=== PATIENT | female | born 1995 | race African-American/Black ===

== ENCOUNTER 2019-09-26 18:07 | Inpatient (IN) | payer SELFPAY ==
[2019-09-26] MEDS ORDERED: NORMAL SALINE 1000 ML 1,000 ML IV ONE ×2 (19:30→23:49)
[2019-09-26] MEDS ORDERED: HYDROMORPHONE HCL INJ/PF 2 MG/ML AMPULE IV ONE (19:30)
[2019-09-26] MEDS ORDERED: ONDANSETRON HCL INJ/PF 4 MG/2 ML SDV IV ONE ×2 (19:30→19:59)
--- NOTE | 2019-09-26 19:32 | ER Document Report ---
ED Medical Screen (RME) - General Chief Complaint: Abdominal Pain Stated Complaint: VOMITING,STOMACH PAIN Time Seen by Provider: 09/26/19 19:25 Notes: 24-year-old female with history of uterine fibroids presents to the emergency department acute distress with lower abdominal/pelvic pain x1 day. Patient is bent over in pain crying in the wheelchair in the triage room. No fevers or chills, complains of nausea and vomiting, no urinary symptoms. Exam: In acute distress bent over in wheelchair, abdominal exam deferred in triage, lungs clear to auscultation all benavidez, tachycardia with regular rhythm I have greeted and performed a rapid initial assessment of this patient. A comprehensive ED assessment and evaluation of the patient, analysis of test results and completion of medical decision making process will be conducted by an additional ED providers. - Related Data Allergies/Adverse Reactions: No Known Allergies Allergy (Unverified 09/26/19 19:26) Past Medical History - Past Medical History Cardiac Medical History: Reports: Hx Hypertension Physical Exam - Vital signs Vitals: Temp Pulse Resp BP Pulse Ox 98.0 F 107 H 18 122/66 100 09/26/19 18:34 09/26/19 18:34 09/26/19 18:34 09/26/19 18:34 09/26/19 18:34 Course - Vital Signs Vital signs: Temp Pulse Resp BP Pulse Ox 98.0 F 107 H 18 122/66 100 09/26/19 18:34 09/26/19 18:34 09/26/19 18:34 09/26/19 18:34 09/26/19 18:34
[2019-09-26] MEDS ORDERED: OXYCODONE-ACETAMINOPHEN 5-325 MG TABLET PO ONE (19:56)
[2019-09-26] MEDS ORDERED: ONDANSETRON 4 MG TAB.RAPDIS PO ONE (19:56)
[2019-09-26 20:35] LABS: HEMATOCRIT 37.8 % (36.0-47.0); HEMOGLOBIN 12.9 g/dL (12.0-15.5); MEAN CORPUSCULAR HEMOGLOBIN 30.3 pg (27.0-33.4); MEAN CORPUSCULAR VOLUME 89 fl (80-97); PLATELET COUNT 303 10^3/uL (150-450); RED BLOOD COUNT 4.24 10^6/uL (3.72-5.28); RED CELL DISTRIBUTION WIDTH 12.7 % (11.5-14.0); WHITE BLOOD COUNT 22.1 10^3/uL (4.0-10.5)
[2019-09-26 20:48] LABS: ALBUMIN 4.4 g/dL (3.5-5.0); ALKALINE PHOSPHATASE 112 U/L (38-126); ANION GAP 11 (5-19); ASPARTATE AMINO TRANSFERASE 64 U/L (14-36); BILIRUBIN,DIRECT 0.2 mg/dL (0.0-0.4); BILIRUBIN,TOTAL 0.7 mg/dL (0.2-1.3); BLOOD UREA NITROGEN 7 mg/dL (7-20); CALCIUM 9.8 mg/dL (8.4-10.2); CARBON DIOXIDE 29 mmol/L (22-30); CHLORIDE 99 mmol/L (98-107); GLUCOSE 94 mg/dL (75-110); TOTAL PROTEIN 8.1 g/dL (6.3-8.2)
[2019-09-26 20:53] LABS: ABSOLUTE LYMPHOCYTES# (MANUAL) 2.7 10^3/uL (0.5-4.7); ABSOLUTE MONOCYTES # (MANUAL) 2.7 10^3/uL (0.1-1.4); BASOPHILS % (MANUAL) 1 % (0-2); EOSINOPHILS % (MANUAL) 0 % (0-6); LYMPHOCYTES % (MANUAL) 12 % (13-45); MONOCYTES % (MANUAL) 12 % (3-13); PLATELET COMMENT ADEQUATE; RBC MORPHOLOGY COMMENT NORMO-CYTIC/CHROMIC; SEGMENTED NEUTROPHILS % (MAN) 75 % (42-78); TOTAL CELLS COUNTED 100
--- NOTE | 2019-09-26 21:31 | RADIOLOGY REPORT (SQ) ---
EXAM DESCRIPTION: US PELVIS TRANSVAGINAL COMPLETED DATE/TME: 09/26/2019 19:30 CLINICAL HISTORY: 24 years, Female, severe pelvic pain, hx fibroids COMPARISON: None. TECHNIQUE: Axial 2-D grayscale images of the pelvis were acquired. Doppler was utilized. LIMITATIONS: None. FINDINGS: Uterus measures 7.4 x 3.0 x 5.4 cm in size. Endometrial stripe thickness measures 10 mm. Left ovary measures 7.2 x 7.1 x 5.5 cm in size, containing a large hypoechoic lesion with internal latticelike echoes measuring 6.7 x 4.9 x 6.4 cm in size. This lesion does not demonstrate any internal Doppler flow. Otherwise, the left ovary demonstrates normal low resistance arterial waveforms/venous flow. The right ovary is not well-visualized. A trace amount of fluid is noted about the endocervical canal. IMPRESSION: 6.7 cm indeterminate ovarian cyst with internal latticelike echoes, most likely indicating a hemorrhagic cyst. Recommend pelvic US follow-up in 6-12 weeks; if unchanged, continue follow-up with US OR MRI with IV contrast - if follow-up studies do not confirm endometrioma or dermoid, consider surgical evaluation. Reference: Radiology 2010 May;256(3):945-32 copyright 2011 [employer]- All Rights Reserved
[2019-09-26] MEDS ORDERED: METOCLOPRAMIDE HCL INJ/PF 10 MG/2 ML SDV IV ONE (23:48)
--- NOTE | 2019-09-26 23:57 | ER Document Report ---
ED General - General Chief Complaint: Abdominal Pain Stated Complaint: VOMITING,STOMACH PAIN Time Seen by Provider: 09/26/19 19:25 TRAVEL OUTSIDE OF THE [place] IN LAST 30 DAYS: No - HPI Notes: 24-year-old female nulligravida with a history of fibroid uterus and recurrent severe abdominal and pelvic pain related to this condition comes in with a 12- hour complaint of insidious onset of severe generalized abdominal pain most severe over bilateral lower abdomen. Denies fever. Multiple episodes of vomiting. Last menses described as normal 3 weeks ago. No current medications. No known allergies. No prior surgery. Patient is otherwise in good general health. She smokes about 1/2 pack cigarettes per day. Occasional social alcohol. Admits smoking marijuana. Denies any other drug abuse. - Related Data Allergies/Adverse Reactions: No Known Allergies Allergy (Unverified 09/26/19 19:26) Past Medical History - General Information source: Patient, Parent - Social History Smoking Status: Current Every Day Smoker Family History: Reviewed & Not Pertinent Patient has suicidal ideation: No Patient has homicidal ideation: No - Past Medical History Cardiac Medical History: Reports: Hx Hypertension Review of Systems - Review of Systems Notes: Constitutional: Negative for fever. HENT: Negative for sore throat. Eyes: Negative for visual changes. Cardiovascular: Negative for chest pain. Respiratory: Negative for shortness of breath. Gastrointestinal: See history of present illness. Genitourinary: Negative for dysuria. Musculoskeletal: Negative for back pain. Skin: Negative for rash. Neurological: Negative for headaches, weakness or numbness. 10 point ROS negative except as marked above and in HPI. Physical Exam - Vital signs Vitals: Temp Pulse Resp BP Pulse Ox 98.0 F 107 H 18 122/66 100 09/26/19 18:34 09/26/19 18:34 09/26/19 18:34 09/26/19 18:34 09/26/19 18:34 - Notes Notes: GENERAL: Slender female approximately stated age who appears in severe distress secondary to pain crying and in a position initially. SKIN: Moderate facial hirsutism. Good turgor no rashes. HEAD: Normocephalic atraumatic. EYES: PERRLA. EOMI. Conjunctivae and sclerae clear. EARS: CANALS AND TMS CLEAR. NOSE: CLEAR. MOUTH: Moist mucosa. Good dentition. No stridor or edema. No drooling. NECK: Supple. No masses or thyromegaly. No adenopathy. Carotids 2+ without bruits. No JVD. BACK: Symmetrical without tenderness. CHEST: Respirations unlabored. Breath sounds clear and symmetrical. HEART: Regular rhythm. No murmur gallop or rub. ABDOMEN: Soft. Diffuse guarding with mild rebound present. Generalized tendern ess. No masses or organomegaly. Bowel sounds normally active. No bruits. GENITALIA: Deferred. EXTREMITIES: No edema. No calf tenderness. Cap refill less than 1.5 seconds. Dorsalis pedis and posterior tibial pulses 3+ and symmetrical. NEUROLOGICAL: GCS 15. Alert and oriented x3. Normal gait. Fluent speech. Cranial nerves II through XII intact. Sensorimotor and cerebellar normal. Norm al tone. PSYCHIATRIC: Very anxious. Course - Re-evaluation Re-evalutation: 09/26/19 23:56 Patient is already had a pelvic ultrasound transvaginal ordered by midlevel at triage. This is reviewed and demonstrates right-sided ovarian cyst. Her white count is markedly elevated. She is dehydrated with not been able to get a urine specimen yet. I have ordered a serum test for her. Differential diagnosis at this time would be acute appendicitis, perforated hollow viscus, ruptured ectopic , ovarian torsion or degenerating fibroid. We are giving additional fluids and analgesics and have ordered a stat CT abd omen/pelvis. 09/27/19 02:24 CT consistent with perforated appendicitis. IV Zosyn and additional fluids and pain medications have been ordered for the patient. Dr. Gonsales the surgeon on-call has been contacted and will see the patient at this time. Patient and father advised of findings. - Vital Signs Vital signs: Temp Pulse Resp BP Pulse Ox 98.0 F 107 H 18 122/66 100 09/26/19 18:34 09/26/19 18:34 09/26/19 18:34 09/26/19 18:34 09/26/19 18:34 - Laboratory Result Diagrams: 09/26/19 20:05 09/26/19 20:05 Laboratory results interpreted by me: 09/26/19 09/26/19 09/27/19 20:05 20:05 01:02 WBC 22.1 H Lymphocytes % (Manual) 12 L Abs Neuts (Manual) 16.6 H Abs Monocytes (Manual) 2.7 H AST 64 H Urine Protein 100 H Urine Ketones 80 H Urine Blood MODERATE H Discharge - Discharge Clinical Impression: Acute appendicitis with perforation and generalized peritonitis Qualifiers: Appendicitis gangrene presence: unspecified whether gangrene present Appendicitis abscess presence: unspecified whether abscess present Qualified Code(s): K35.20 - Acute appendicitis with generalized peritonitis, without abscess Condition: Serious Disposition: ADMITTED INPATIENT Admitting Provider: Surgicalist Unit Admitted: Surgical Floor
[2019-09-27] MEDS: FENTANYL CITRATE INJ/PF 100 MCG/2 ML AMPUL IV PRN ×6 (00:01→04:47)
[2019-09-27 01:29] LABS: APPEARANCE,URINE SLIGHTLY-CLOUDY; BILIRUBIN,URINE NEGATIVE (NEGATIVE); GLUCOSE, URINE NEGATIVE (NEGATIVE); KETONES,URINE 80 mg/dL (NEGATIVE); LEUKOCYTE ESTERASE,URINE NEGATIVE (NEGATIVE); NITRITE,URINE NEGATIVE (NEGATIVE); PROTEIN,URINE 100 mg/dL (NEGATIVE); URINE SPECIFIC GRAVITY 1.032; UROBILINOGEN,URINE NEGATIVE mg/dL (<2.0)
[2019-09-27 01:31] LABS: COLOR,URINE YELLOW
[2019-09-27 02:00] LABS: URINE AMPHETAMINES SCREEN NEGATIVE; URINE BARBITURATES SCREEN NEGATIVE; URINE BENZODIAZEPINES SCREEN NEGATIVE; URINE METHADONE SCREEN NEGATIVE; URINE PHENCYCLIDINE SCREEN NEGATIVE
[2019-09-27 02:02] LABS: URINE COCAINE SCREEN NEGATIVE
[2019-09-27 02:07] LABS: URINE MARIJUANA (THC) SCREEN UNCONFIRMED POSITIVE
--- NOTE | 2019-09-27 02:14 | RADIOLOGY REPORT (SQ) ---
CT abdomen and pelvis with contrast on 09/27/2019 1:26 AM CLINICAL INDICATION: Generalized abdominal pain TECHNIQUE: Multiple axial images are obtained throughout the abdomen and pelvis following the administration of IV contrast, 93 mL of Omnipaque 350 contrast was administered intravenously without complication. This exam was performed according to our departmental dose-optimization program, which includes automated exposure control, adjustment of the mA and/or kV according to patient size and/or use of iterative reconstruction technique. Total DLP is 1001.51 mGy*cm. COMPARISON: None FINDINGS: Abdomen: The lung bases are clear. The solid abdominal organs are unremarkable. There is no abdominal adenopathy. There is no free fluid or free air within the abdomen. The abdominal portion of the GI tract is unremarkable. Pelvis: There is a calcified appendicolith within the mid to distal aspect of the appendix in the mid pelvis. Surrounding this is an extensive inflammatory response with stranding and fluid. The findings are consistent with acute perforated appendicitis with likely abscess formation in the pelvic mesentery. There is associated reactive ileus with some dilated bowel in the pelvis. Recommend urgent surgical consultation. There is a large simple 7.3 x 6.2 x 6.1 cm left ovarian cyst. Would recommend ultrasound follow-up in 6-12 weeks. There is no pelvic adenopathy. Pelvic organs otherwise appear unremarkable by CT. No bony abnormality is noted. IMPRESSION: 1. Findings consistent with acute perforated appendicitis with phlegmon and abscess formation in the mid pelvis with associated reactive ileus. Recommend urgent surgical consultation. 2. 7.3 cm simple appearing left ovarian cyst. Recommend ultrasound follow-up in 6-12 weeks.
[2019-09-27] MEDS ORDERED: PIPERACILLIN/TAZOBACTAM 3.375 GM VIAL IV ONE (02:17)
[2019-09-27] MEDS ORDERED: NORMAL SALINE 1000 ML 1,000 ML IV ONE (02:25)
[2019-09-27] MEDS ORDERED: GLUCAGON,HUMAN RECOMB 1 MG INJ SUBCUT PRN (04:02)
[2019-09-27] MEDS ORDERED: MORPHINE SULFATE 10 MG/ML INJ IV PRN (04:02)
[2019-09-27] MEDS ORDERED: DEXTROSE 40% GEL 15 GM TUBE PO PRN ×2 (04:02)
[2019-09-27] MEDS ORDERED: ACETAMINOPHEN 650 MG SUPP.RECT PR PRN (04:02)
[2019-09-27] MEDS ORDERED: DEXTROSE 50%-WATER 25 GM/50 ML DISP.SYRIN IV PRN ×2 (04:02)
--- NOTE | 2019-09-27 04:19 | PDOC H&P ---
History of Present Illness Admission Date/PCP: 09/27/19 03:09 History of Present Illness: HUMERA KINSEY is a 24 year old female nulligravida with a history of fibroid uterus and recurrent severe abdominal and pelvic pain related to this condition comes in with a 12-hour complaint of insidious onset of severe generalized abdominal pain most severe over bilateral lower abdomen. Denies fever. Multiple episodes of vomiting. Last menses described as normal 3 weeks ago. No current medications. No known allergies. No prior surgery. Patient states that she has been having some lower abdominal pain for the last few weeks and has seen her primary MD who suggested that her lower abdominal pain was secondary to her fibroid uterus. She recently arrived in [place] traveling from [place] where she resided prior. Patient is otherwise in good general health. She smokes about 1/2 pack cigarettes per day. Occasional social alcohol. Admits smoking marijuana. Edd es any other drug abuse. Past Medical History Cardiac Medical History: Reports: Hypertension Social History Smoking Status: Current Every Day Smoker Family History Family History: Reviewed & Not Pertinent Parental Family History Reviewed: No Children Family History Reviewed: NA Sibling(s) Family History Reviewed.: NA Medication/Allergy Allergies/Adverse Reactions: No Known Allergies Allergy (Unverified 09/26/19 19:26) Review of Systems Constitutional: PRESENT: anorexia, fatigue, weakness, weight loss Eyes: ABSENT: visual disturbances Ears: ABSENT: hearing changes Nose, Mouth, and Throat: ABSENT: as per HPI, headache(s), mouth pain, sore throat, vertigo, other Breasts: ABSENT: as per HPI, other Cardiovascular: ABSENT: chest pain, dyspnea on exertion, edema, orthropnea, palpitations Gastrointestinal: PRESENT: abdominal pain, constipation, nausea, vomiting Genitourinary: ABSENT: dysuria, hematuria Musculoskeletal: ABSENT: joint swelling Integumentary: ABSENT: rash, wounds Neurological: ABSENT: abnormal gait, abnormal speech, confusion, dizziness, focal weakness, syncope Psychiatric: ABSENT: anxiety, depression, homidical ideation, suicidal ideation Endocrine: ABSENT: cold intolerance, heat intolerance, polydipsia, polyuria Hematologic/Lymphatic: ABSENT: easy bleeding, easy bruising Physical Exam Vital Signs: Temp Pulse Resp BP Pulse Ox 99.8 F 107 H 19 125/89 H 98 09/27/19 03:00 09/26/19 18:34 09/27/19 04:01 09/27/19 04:01 09/27/19 04:01 Intake & Output 09/25/19 09/26/19 09/27/19 06:59 06:59 06:59 Intake Total 1999 Balance 1999 Weight 81.82 kg General appearance: PRESENT: mild distress Head exam: PRESENT: normocephalic Eye exam: PRESENT: EOMI, PERRLA Ear exam: PRESENT: normal external ear exam Mouth exam: PRESENT: moist Neck exam: PRESENT: full ROM Respiratory exam: PRESENT: clear to auscultation bhanu Cardiovascular exam: PRESENT: RRR, tachycardia Pulses: PRESENT: normal radial pulses, normal femoral pulses Vascular exam: PRESENT: normal capillary refill Breast: PRESENT: Normal GI/Abdominal exam: PRESENT: other - Abdomen is mildly distended there is tenderness in the lower abdomen below her umbilicus with a palpable swelling below her umbilicus approximately 6 to 8 cm in diameter that is tender to palpation with mild peritoneal signs, guarding Rectal exam: PRESENT: deferred Extremities exam: PRESENT: full ROM Musculoskeletal exam: PRESENT: full ROM Neurological exam: PRESENT: alert, awake, oriented to person, oriented to place, oriented to time, oriented to situation Psychiatric exam: PRESENT: appropriate affect Skin exam: PRESENT: dry Results Laboratory Results: 09/26/19 20:05 09/26/19 20:05 09/26/19 09/26/19 09/26/19 20:05 20:05 20:05 WBC 22.1 H RBC 4.24 Hgb 12.9 Hct 37.8 MCV 89 MCH 30.3 MCHC 34.0 RDW 12.7 Plt Count 303 Seg Neutrophils % Not Reportable Sodium 139.1 Potassium 4.0 Chloride 99 Carbon Dioxide 29 Anion Gap 11 BUN 7 Creatinine 0.77 Est GFR ( Amer) > 60 Glucose 94 Calcium 9.8 Total Bilirubin 0.7 AST 64 H Alkaline Phosphatase 112 Total Protein 8.1 Albumin 4.4 Serum HCG, Qual NEGATIVE Urine Color Urine Appearance Urine pH Ur Specific Welch Urine Protein Urine Glucose (UA) Urine Ketones Urine Blood Urine Nitrite Ur Leukocyte Esterase Urine WBC (Auto) Urine RBC (Auto) 09/27/19 01:02 WBC RBC Hgb Hct MCV MCH MCHC RDW Plt Count Seg Neutrophils % Sodium Potassium Chloride Carbon Dioxide Anion Gap BUN Creatinine Est GFR ( Amer) Glucose Calcium Total Bilirubin AST Alkaline Phosphatase Total Protein Albumin Serum HCG, Qual Urine Color YELLOW Urine Appearance SLIGHTLY-CLOUDY Urine pH 6.0 Ur Specific Welch 1.032 Urine Protein 100 H Urine Glucose (UA) NEGATIVE Urine Ketones 80 H Urine Blood MODERATE H Urine Nitrite NEGATIVE Ur Leukocyte Esterase NEGATIVE Urine WBC (Auto) 4 Urine RBC (Auto) 65 Impressions: Abdomen/Pelvis CT 09/26/19 00:00 IMPRESSION: 1. Findings consistent with acute perforated appendicitis with phlegmon and abscess formation in the mid pelvis with associated reactive ileus. Recommend urgent surgical consultation. 2. 7.3 cm simple appearing left ovarian cyst. Recommend ultrasound follow-up in 6-12 weeks. Transvaginal US 09/26/19 19:30 IMPRESSION: 6.7 cm indeterminate ovarian cyst with internal latticelike echoes, most likely indicating a hemorrhagic cyst. Recommend pelvic US follow-up in 6-12 weeks; if unchanged, continue follow-up with US OR MRI with IV contrast - if follow-up studies do not confirm endometrioma or dermoid, consider surgical evaluation. Reference: Radiology 2010 May;256(3):174-57 copyright 2011 [employer]- All Rights Reserved Assessment & Plan - Diagnosis (1) Perforated appendicitis with phlegmon Is this a current diagnosis for this admission?: Yes - Plan Summary Plan Summary: Impression is perforated appendicitis with phlegmon. There is a large phlegmon in her lower mid abdomen that is involving the small bowel mesentery there is a moderate sized fecalith in her lower abdomen the appendix appears to be ruptured there is no free air Plan admit the patient for IV antibiotics hydration. Long discussion with the patient and her mother over the phone about the process going forward is felt that an operation now to remove her appendix would involve significant injury to her small bowel possible: She also has a large left-sided ovarian cyst. We will start her antibiotics tonight IV hydration and monitor her will probably repeat the CAT scan again in the next 2 to 3 days to evaluate for any drainable abscess. If she responds appropriately to the IV antibiotics she will need a interval appendectomy at a later date.
[2019-09-27] MEDS ORDERED: HYDROMORPHONE HCL INJ/PF 2 MG/ML AMPULE IV PRN ×2 (06:46→18:38)
[2019-09-27] MEDS: HEPARIN SOD (PORCINE) 5,000 UNIT/ML 1 ML VIAL SUBCUT SCH ×3 (06:48→22:59)
[2019-09-27] MEDS: POTASSI CL 20 MEQ/1/2NS 1L 20 MEQ/1,000 ML RTUINJ IV PRN ×3 (06:48→21:17)
[2019-09-27] MEDS: KETOROLAC TROMETHAMINE INJ/PF 30 MG/1 ML SDV IV SCH ×3 (08:14→17:25)
[2019-09-27] MEDS: PIPERACILLIN SODIUM/TAZOBACTAM 3.375 GM in NORMAL SALINE 100 ML IV SCH ×2 (10:54→17:31)
[2019-09-27] MEDS: FAMOTIDINE INJ/PF 20 MG/2 ML SDV IV SCH ×2 (10:54→22:59)
[2019-09-27] MEDS: ACETAMINOPHEN 1,000 MG/100 ML RTUPB IV SCH ×3 (13:49→22:59)
[2019-09-27] MEDS: ONDANSETRON HCL INJ/PF 4 MG/2 ML SDV IV PRN (21:17)
[2019-09-28] MEDS: KETOROLAC TROMETHAMINE INJ/PF 30 MG/1 ML SDV IV SCH ×5 (00:32→23:24)
[2019-09-28] MEDS: PIPERACILLIN SODIUM/TAZOBACTAM 3.375 GM in NORMAL SALINE 100 ML IV SCH ×3 (01:52→18:21)
[2019-09-28] MEDS ORDERED: GLUCAGON,HUMAN RECOMB 1 MG INJ SUBCUT PRN (02:28)
[2019-09-28] MEDS ORDERED: DEXTROSE 40% GEL 15 GM TUBE PO PRN ×2 (02:28)
[2019-09-28] MEDS ORDERED: DEXTROSE 50%-WATER 25 GM/50 ML DISP.SYRIN IV PRN ×2 (02:28)
[2019-09-28] MEDS: HEPARIN SOD (PORCINE) 5,000 UNIT/ML 1 ML VIAL SUBCUT SCH ×3 (05:05→21:44)
[2019-09-28] MEDS: POTASSI CL 20 MEQ/1/2NS 1L 20 MEQ/1,000 ML RTUINJ IV PRN ×2 (05:05→21:25)
[2019-09-28] MEDS: ACETAMINOPHEN 1,000 MG/100 ML RTUPB IV SCH ×4 (05:14→23:24)
[2019-09-28 07:01] LABS: HEMATOCRIT 34.7 % (36.0-47.0); HEMOGLOBIN 11.6 g/dL (12.0-15.5); MEAN CORPUSCULAR HEMOGLOBIN 30.1 pg (27.0-33.4); MEAN CORPUSCULAR HGB CONC 33.5 g/dL (32.0-36.0); MEAN CORPUSCULAR VOLUME 90 fl (80-97); PLATELET COUNT 233 10^3/uL (150-450); RED BLOOD COUNT 3.86 10^6/uL (3.72-5.28); RED CELL DISTRIBUTION WIDTH 12.9 % (11.5-14.0); WHITE BLOOD COUNT 21.1 10^3/uL (4.0-10.5)
[2019-09-28 07:16] LABS: ANION GAP 13 (5-19); BLOOD UREA NITROGEN 3 mg/dL (7-20); CALCIUM 8.8 mg/dL (8.4-10.2); CARBON DIOXIDE 19 mmol/L (22-30); CHLORIDE 103 mmol/L (98-107); POTASSIUM 4.3 mmol/L (3.6-5.0)
[2019-09-28 07:22] LABS: GLUCOSE 63 mg/dL (75-110)
[2019-09-28] MEDS: FAMOTIDINE INJ/PF 20 MG/2 ML SDV IV SCH ×2 (09:17→21:44)
--- NOTE | 2019-09-28 10:04 | PDOC PROGRESS REPORT ---
Subjective Progress Note for:: 09/28/19 Subjective:: Patient states she feels some better, no nausea or vomiting. Reason For Visit: PERFORATED APPENDICITIS Physical Exam Vital Signs: Temp Pulse Resp BP Pulse Ox 98.2 F 85 18 122/69 100 09/28/19 07:32 09/28/19 07:32 09/28/19 07:32 09/28/19 07:32 09/28/19 07:32 Intake & Output 09/27/19 09/28/19 09/29/19 06:59 06:59 06:59 Intake Total 3000 3700 Output Total 275 Balance 3000 3425 Weight 78.5 kg 78.1 kg General appearance: PRESENT: no acute distress GI/Abdominal exam: PRESENT: other - Abdomen examined. Bowel sounds are hypoactive. Some fullness in the mid to or abdomen, with guarding to moderate palpation. The remainder the abdomen is soft. No peritoneal signs Results Laboratory Results: 09/28/19 06:33 09/28/19 06:33 09/28/19 09/28/19 06:33 06:33 WBC 21.1 H RBC 3.86 Hgb 11.6 L Hct 34.7 L MCV 90 MCH 30.1 MCHC 33.5 RDW 12.9 Plt Count 233 Sodium 134.5 L Potassium 4.3 Chloride 103 Carbon Dioxide 19 L Anion Gap 13 BUN 3 L Creatinine 0.71 Est GFR ( Amer) > 60 Glucose 63 L Calcium 8.8 Impressions: Abdomen/Pelvis CT 09/26/19 00:00 IMPRESSION: 1. Findings consistent with acute perforated appendicitis with phlegmon and abscess formation in the mid pelvis with associated reactive ileus. Recommend urgent surgical consultation. 2. 7.3 cm simple appearing left ovarian cyst. Recommend ultrasound follow-up in 6-12 weeks. Transvaginal US 09/26/19 19:30 IMPRESSION: 6.7 cm indeterminate ovarian cyst with internal latticelike echoes, most likely indicating a hemorrhagic cyst. Recommend pelvic US follow-up in 6-12 weeks; if unchanged, continue follow-up with US OR MRI with IV contrast - if follow-up studies do not confirm endometrioma or dermoid, consider surgical evaluation. Reference: Radiology 2010 May;256(3):276-18 copyright 2011 [employer]- All Rights Reserved Assessment & Plan - Diagnosis (1) Perforated appendicitis with phlegmon Is this a current diagnosis for this admission?: Yes Plan: Impression: Clinically stable, however persisting leukocytosis and metabolic acidosis. Recommendations: 1. Discussed management with the surgical team. We will continue nonoperative management for another 24 hours then reassess 2. We will start clear liquid sips; get patient out of bed into chair, and shower 3. Will increase IV fluids. - Time Time Spent with patient: 15-24 minutes Medications reviewed and adjusted accordingly: Yes Anticipated discharge: Home
[2019-09-28] MEDS ORDERED: NORMAL SALINE 1000 ML 1,000 ML IV PRN (10:15)
[2019-09-28] MEDS: DOCUSATE SODIUM 100 MG CAPSULE PO SCH ×2 (12:22→18:26)
[2019-09-28] MEDS ORDERED: ACETAMINOPHEN 1,000 MG/100 ML RTUPB IV ONE (23:09)
[2019-09-29] MEDS: PIPERACILLIN SODIUM/TAZOBACTAM 3.375 GM in NORMAL SALINE 100 ML IV SCH ×3 (02:36→17:09)
[2019-09-29] MEDS: KETOROLAC TROMETHAMINE INJ/PF 30 MG/1 ML SDV IV SCH ×3 (06:22→17:04)
[2019-09-29] MEDS: HEPARIN SOD (PORCINE) 5,000 UNIT/ML 1 ML VIAL SUBCUT SCH ×3 (06:23→22:07)
[2019-09-29 06:47] LABS: HEMATOCRIT 32.5 % (36.0-47.0); HEMOGLOBIN 10.9 g/dL (12.0-15.5); MEAN CORPUSCULAR HEMOGLOBIN 29.8 pg (27.0-33.4); MEAN CORPUSCULAR HGB CONC 33.5 g/dL (32.0-36.0); MEAN CORPUSCULAR VOLUME 89 fl (80-97); PLATELET COUNT 254 10^3/uL (150-450); RED BLOOD COUNT 3.64 10^6/uL (3.72-5.28); RED CELL DISTRIBUTION WIDTH 12.7 % (11.5-14.0); WHITE BLOOD COUNT 16.2 10^3/uL (4.0-10.5)
[2019-09-29 07:17] LABS: ANION GAP 9 (5-19); BLOOD UREA NITROGEN 3 mg/dL (7-20); CALCIUM 8.6 mg/dL (8.4-10.2); CARBON DIOXIDE 22 mmol/L (22-30); CHLORIDE 106 mmol/L (98-107); GLUCOSE 85 mg/dL (75-110); POTASSIUM 4.3 mmol/L (3.6-5.0)
[2019-09-29] MEDS: ACETAMINOPHEN 1,000 MG/100 ML RTUPB IV SCH ×4 (09:34→18:01)
[2019-09-29] MEDS: FAMOTIDINE INJ/PF 20 MG/2 ML SDV IV SCH ×2 (09:34→22:06)
[2019-09-29] MEDS: POTASSI CL 20 MEQ/1/2NS 1L 20 MEQ/1,000 ML RTUINJ IV PRN ×3 (09:35→22:07)
[2019-09-29] MEDS: DOCUSATE SODIUM 100 MG CAPSULE PO SCH ×3 (10:00→18:02)
--- NOTE | 2019-09-29 11:21 | PDOC PROGRESS REPORT ---
Subjective Progress Note for:: 09/29/19 Subjective:: less pains. Had diarrhea last night with small amount of flatus. Tolerating some clears Claims her menses started again yesterday and usually she gets some pelvic pains with her lens menstruation. Reason For Visit: PERFORATED APPENDICITIS Physical Exam Vital Signs: Temp Pulse Resp BP Pulse Ox 98.5 F 81 16 123/78 99 09/29/19 07:12 09/29/19 07:12 09/29/19 07:12 09/29/19 07:12 09/29/19 07:12 Intake & Output 09/28/19 09/29/19 09/30/19 06:59 06:59 06:59 Intake Total 3700 3580 100 Output Total 275 300 Balance 3425 3280 100 Weight 78.1 kg 79.4 kg General appearance: PRESENT: mild distress Exam: Abdomen is less distended than remains soft but still with some tenderness in mohsen th lower quadrant areas. Results Laboratory Results: 09/29/19 06:33 09/29/19 06:33 09/29/19 09/29/19 06:33 06:33 WBC 16.2 H RBC 3.64 L Hgb 10.9 L Hct 32.5 L MCV 89 MCH 29.8 MCHC 33.5 RDW 12.7 Plt Count 254 Sodium 136.6 L Potassium 4.3 Chloride 106 Carbon Dioxide 22 Anion Gap 9 BUN 3 L Creatinine 0.63 Est GFR ( Amer) > 60 Glucose 85 Calcium 8.6 Impressions: Abdomen/Pelvis CT 09/26/19 00:00 IMPRESSION: 1. Findings consistent with acute perforated appendicitis with phlegmon and abscess formation in the mid pelvis with associated reactive ileus. Recommend urgent surgical consultation. 2. 7.3 cm simple appearing left ovarian cyst. Recommend ultrasound follow-up in 6-12 weeks. Transvaginal US 09/26/19 19:30 IMPRESSION: 6.7 cm indeterminate ovarian cyst with internal latticelike echoes, most likely indicating a hemorrhagic cyst. Recommend pelvic US follow-up in 6-12 weeks; if unchanged, continue follow-up with US OR MRI with IV contrast - if follow-up studies do not confirm endometrioma or dermoid, consider surgical evaluation. Reference: Radiology 2010 May;256(3):946-28 copyright 2011 [employer]- All Rights Reserved Assessment & Plan - Diagnosis (1) Perforated appendicitis with phlegmon Is this a current diagnosis for this admission?: Yes - Time Time Spent with patient: 15-24 minutes - Inpatient Certification Medical Necessity: Need for Pain Control, Need for IV Antibiotics, Risk of C omplication if Not Cared For in Hospital - Plan Summary Plan Summary: 24-year-old female admitted 09/27/2019 for perforated appendicitis with phlegmon noted on CT scan. Her white count was elevated to 22,000 on admission and today is down to about 16,000. Patient continued to have some diarrheic stools with small amount of flatus. Has occasional nausea with vomiting but her pains appears to be getting a little better. Unfortunately he had her menses come back yesterday and she is on her pains with her mental menstruation. Plans: Continue on clear liquids and IV antibiotics A possible repeat CT scan of the abdomen and 24 to 48 hours and see if there is any localized abscess that may be drained by IR
[2019-09-30] MEDS: KETOROLAC TROMETHAMINE INJ/PF 30 MG/1 ML SDV IV SCH ×4 (00:29→17:46)
[2019-09-30] MEDS: ACETAMINOPHEN 1,000 MG/100 ML RTUPB IV SCH ×2 (00:29→07:01)
[2019-09-30] MEDS: PIPERACILLIN SODIUM/TAZOBACTAM 3.375 GM in NORMAL SALINE 100 ML IV SCH ×3 (02:38→17:46)
[2019-09-30 05:15] LABS: HEMATOCRIT 32.8 % (36.0-47.0); HEMOGLOBIN 10.9 g/dL (12.0-15.5); MEAN CORPUSCULAR HEMOGLOBIN 29.6 pg (27.0-33.4); MEAN CORPUSCULAR HGB CONC 33.2 g/dL (32.0-36.0); MEAN CORPUSCULAR VOLUME 89 fl (80-97); PLATELET COUNT 290 10^3/uL (150-450); RED BLOOD COUNT 3.67 10^6/uL (3.72-5.28); RED CELL DISTRIBUTION WIDTH 12.7 % (11.5-14.0); WHITE BLOOD COUNT 17.3 10^3/uL (4.0-10.5)
[2019-09-30 05:44] LABS: ANION GAP 10 (5-19); BLOOD UREA NITROGEN 2 mg/dL (7-20); CALCIUM 8.6 mg/dL (8.4-10.2); CARBON DIOXIDE 23 mmol/L (22-30); CHLORIDE 104 mmol/L (98-107); GLUCOSE 72 mg/dL (75-110); POTASSIUM 4.5 mmol/L (3.6-5.0)
[2019-09-30] MEDS ORDERED: ACETAMINOPHEN 1,000 MG/100 ML RTUPB IV ONE (06:17)
[2019-09-30] MEDS: HEPARIN SOD (PORCINE) 5,000 UNIT/ML 1 ML VIAL SUBCUT SCH ×3 (07:03→21:42)
[2019-09-30] MEDS: POTASSI CL 20 MEQ/1/2NS 1L 20 MEQ/1,000 ML RTUINJ IV PRN ×3 (07:11→21:05)
[2019-09-30] MEDS: FAMOTIDINE INJ/PF 20 MG/2 ML SDV IV SCH ×2 (09:16→21:43)
[2019-09-30] MEDS: DOCUSATE SODIUM 100 MG CAPSULE PO SCH ×2 (10:38→17:46)
[2019-09-30] MEDS: ONDANSETRON HCL INJ/PF 4 MG/2 ML SDV IV PRN (12:03)
--- NOTE | 2019-09-30 12:15 | RADIOLOGY REPORT (SQ) ---
EXAM DESCRIPTION: CT ABD/PELVIS WITH IV ORAL COMPLETED DATE/TIME: 09/30/2019 11:35 am REASON FOR STUDY: Rule out abscess Perforated appendicitis COMPARISON: CT abdomen pelvis, 09/27/2019, pelvic ultrasound, 09/26/2019 TECHNIQUE: CT scan of the abdomen and pelvis performed using helical scanning technique with dynamic intravenous contrast injection. Additional oral contrast. Images reviewed with lung, soft tissue, a nd bone windows. Reconstructed coronal and sagittal MPR images reviewed. Delayed images for evaluatio n of the urinary system also acquired. All images stored on PACS. All CT scanners at this facility use dose modulation, iterative reconstruction, and/or weight based d osing when appropriate to reduce radiation dose to as low as reasonably achievable (ALARA). [facility]: Dose Right [facility]: CareDose [facility]: Dose Right [facility]: Teradose 4D [facility]: [employer] CONTRAST TYPE AND DOSE: contrast/concentration: Isovue 350.00 mg/ml; Total Contrast Delivered: 90.0 ml; Total Saline Delivered: 70.0 ml RENAL FUNCTION: None required. The patient is less than 50 years old. RADIATION DOSE: CT Rad equipment meets quality standard of care and radiation dose reduction techniq ues were employed. CTDIvol: 8.1 - 8.2 mGy. DLP: 882 mGy-cm.. LIMITATIONS: None. FINDINGS: LOWER CHEST: No significant findings. No nodules or infiltrates. LIVER: Normal size. No masses. No dilated ducts. SPLEEN: Normal size. No focal lesions. PANCREAS: No masses. No significant calcifications. No adjacent inflammation or peripancreatic fluid collections. Pancreatic duct not dilated. GALLBLADDER: No identified stones by CT criteria. No inflammatory changes to suggest cholecystitis. ADRENAL GLANDS: No significant masses or asymmetry. RIGHT KIDNEY AND URETER: No solid masses. No significant calcifications. No hydronephrosis or hyd roureter. LEFT KIDNEY AND URETER: No solid masses. No significant calcifications. No hydronephrosis or hydr oureter. AORTA AND VESSELS: No aneurysm. No dissection. Renal arteries, SMA, celiac without stenosis. RETROPERITONEUM: No retroperitoneal adenopathy, hemorrhage or masses. BOWEL AND PERITONEAL CAVITY: No bowel obstruction. APPENDIX: There is a more discretely appreciated rim enhancing fluid collection in the low central ab domen adjacent to a calcification, likely an at appendicolith, findings generally in keeping with per forated appendicitis complicated by abscess. Fluid collection measures approximately 4.3 x 2.7 x 2.0 cm (series 601, image 31). PELVIS: There is a large fluid attenuation lesion in the vicinity of the left ovary measuring at leas t 8.1 cm. No free fluid. Normal bladder. ABDOMINAL WALL: No masses. No hernias. BONES: No significant or acute findings. OTHER: No other significant finding. IMPRESSION: 1. There is a more discretely appreciated rim enhancing fluid collection in the low cent ral abdomen adjacent to a calcification, likely an at appendicolith, findings generally in keeping wi th perforated appendicitis complicated by abscess. Fluid collection measures approximately 4.3 x 2.7 x 2.0 cm (series 601, image 31). 2. There is a large fluid attenuation lesion in the vicinity of the left ovary measuring at least 8.1 cm, in keeping with ovarian cyst identified on prior ultrasound. TECHNICAL DOCUMENTATION: JOB ID: [id number] Quality ID # [id number]: Final reports with documentation of one or more dose reduction techniques (e.g., Au tomated exposure control, adjustment of the mA and/or kV according to patient size, use of iterative reconstruction technique) 2010 [employer]- All Rights Reserved Reading location - IP/workstation name: [email or web address]
--- NOTE | 2019-09-30 14:05 | PDOC PROGRESS REPORT ---
Subjective Progress Note for:: 09/30/19 Subjective:: C/o lower abdominal pains this patient attributes more to her menses which started the other day. Still having liquid stools. Some flatus. She had a vomiting episode last night Reason For Visit: PERFORATED APPENDICITIS Physical Exam Vital Signs: Temp Pulse Resp BP Pulse Ox 98.4 F 84 16 135/78 H 100 09/30/19 12:00 09/30/19 12:00 09/30/19 12:00 09/30/19 12:00 09/30/19 12:00 Intake & Output 09/29/19 09/30/19 10/01/19 06:59 06:59 06:59 Intake Total 3600 3587 200 Output Total 300 Balance 3300 3587 200 Weight 79.4 kg 79.3 kg Exam: Abdomen remains soft and less distended. She still mildly tender around the periumbilical and suprapubic areas. Results Laboratory Results: 09/30/19 04:57 09/30/19 04:57 09/30/19 09/30/19 04:57 04:57 WBC 17.3 H RBC 3.67 L Hgb 10.9 L Hct 32.8 L MCV 89 MCH 29.6 MCHC 33.2 RDW 12.7 Plt Count 290 Sodium 137.2 Potassium 4.5 Chloride 104 Carbon Dioxide 23 Anion Gap 10 BUN 2 L Creatinine 0.66 Est GFR ( Amer) > 60 Glucose 72 L Calcium 8.6 Impressions: Transvaginal US 09/26/19 19:30 IMPRESSION: 6.7 cm indeterminate ovarian cyst with internal latticelike echoes, most likely indicating a hemorrhagic cyst. Recommend pelvic US follow-up in 6-12 weeks; if unchanged, continue follow-up with US OR MRI with IV contrast - if follow-up studies do not confirm endometrioma or dermoid, consider surgical evaluation. Reference: Radiology 2010 May;256(3):943-34 copyright 2011 [employer]- All Rights Reserved Abdomen/Pelvis CT 09/30/19 00:00 IMPRESSION: 1. There is a more discretely appreciated rim enhancing fluid collection in the low central abdomen adjacent to a calcification, likely an at appendicolith, findings generally in keeping with perforated appendicitis complicated by abscess. Fluid collection measures approximately 4.3 x 2.7 x 2.0 cm (series 601, image 31). 2. There is a large fluid attenuation lesion in the vicinity of the left ovary measuring at least 8.1 cm, in keeping with ovarian cyst identified on prior ultrasound. Assessment & Plan - Diagnosis (1) Perforated appendicitis with phlegmon Is this a current diagnosis for this admission?: Yes - Time Time Spent with patient: 15-24 minutes - Inpatient Certification Medical Necessity: Need For IV Fluids, Need for IV Antibiotics, Need for Surgery - Plan Summary Plan Summary: At follow-up CT scan of the abdomen after first 1 done about 4 days ago. This showed more localized small periappendiceal abscess. I reviewed the films and discuss it with the radiologist. There will have an IR tomorrow for possible drainage/aspiration of abdominal abscess. Continue with IV antibiotic therapy and IV fluids. Continue with clear liquids for now. We will repeat the CBC in a.m. since it remains still elevated.
[2019-10-01] MEDS: PIPERACILLIN SODIUM/TAZOBACTAM 3.375 GM in NORMAL SALINE 100 ML IV SCH ×3 (01:00→18:05)
[2019-10-01] MEDS: KETOROLAC TROMETHAMINE INJ/PF 30 MG/1 ML SDV IV SCH ×5 (03:20→23:57)
[2019-10-01] MEDS: HEPARIN SOD (PORCINE) 5,000 UNIT/ML 1 ML VIAL SUBCUT SCH ×2 (05:47→16:50)
[2019-10-01] MEDS: POTASSI CL 20 MEQ/1/2NS 1L 20 MEQ/1,000 ML RTUINJ IV PRN (06:06)
[2019-10-01 06:59] LABS: HEMATOCRIT 31.5 % (36.0-47.0); HEMOGLOBIN 10.7 g/dL (12.0-15.5); MEAN CORPUSCULAR HEMOGLOBIN 30.2 pg (27.0-33.4); MEAN CORPUSCULAR HGB CONC 33.9 g/dL (32.0-36.0); MEAN CORPUSCULAR VOLUME 89 fl (80-97); PLATELET COUNT 303 10^3/uL (150-450); RED BLOOD COUNT 3.54 10^6/uL (3.72-5.28); RED CELL DISTRIBUTION WIDTH 12.9 % (11.5-14.0); WHITE BLOOD COUNT 15.8 10^3/uL (4.0-10.5)
[2019-10-01 07:18] LABS: ANION GAP 14 (5-19); CALCIUM 8.9 mg/dL (8.4-10.2); CARBON DIOXIDE 19 mmol/L (22-30); CHLORIDE 103 mmol/L (98-107); POTASSIUM 4.5 mmol/L (3.6-5.0)
[2019-10-01 07:55] LABS: BLOOD UREA NITROGEN < 2 mg/dL (7-20); GLUCOSE 64 mg/dL (75-110)
[2019-10-01] MEDS: DOCUSATE SODIUM 100 MG CAPSULE PO SCH ×2 (09:04→18:21)
[2019-10-01] MEDS: POTASSI CL 20 MEQ/D5-1/2NS 1L 1000 ML IV PRN ×3 (09:07→21:26)
[2019-10-01] MEDS: FAMOTIDINE INJ/PF 20 MG/2 ML SDV IV SCH ×2 (10:54→21:23)
--- NOTE | 2019-10-01 18:13 | PDOC PROGRESS REPORT ---
Subjective Progress Note for:: 10/01/19 Subjective:: 24-year-old female with an intra-abdominal abscess, suspicious for appendicitis. The patient was supposed to have a percutaneous drainage of her intra-abdominal abscess today by interventional radiology. This has not been done as of yet. The patient reports being hungry, but does not report any significant abdominal pain, fevers, chills, nausea, vomiting, constipation, diarrhea, chest pain, shortness of breath, dizziness, blurry vision, fatigue, malaise, or other complaint. Reason For Visit: PERFORATED APPENDICITIS Physical Exam Vital Signs: Temp Pulse Resp BP Pulse Ox 98.6 F 72 18 122/76 98 10/01/19 15:21 10/01/19 15:21 10/01/19 15:21 10/01/19 15:21 10/01/19 15:21 Intake & Output 09/30/19 10/01/19 10/02/19 06:59 06:59 06:59 Intake Total 3587 3400 2040 Balance 3587 3400 2040 Weight 79.3 kg 78.1 kg General appearance: PRESENT: no acute distress, cooperative Head exam: PRESENT: atraumatic, normocephalic Eye exam: PRESENT: EOMI, PERRLA. ABSENT: scleral icterus Mouth exam: PRESENT: moist, neck supple Neck exam: ABSENT: meningismus, tenderness, thyromegaly, tracheal deviation Respiratory exam: PRESENT: clear to auscultation bhanu. ABSENT: chest wall tenderness Cardiovascular exam: PRESENT: RRR GI/Abdominal exam: PRESENT: soft, tenderness - Mild lower abdominal tenderness. ABSENT: guarding, rebound, rigid Rectal exam: PRESENT: deferred Extremities exam: ABSENT: clubbing Musculoskeletal exam: ABSENT: deformity Neurological exam: PRESENT: alert, awake, oriented to person, oriented to place, oriented to time, oriented to situation, CN II-XII grossly intact. ABSENT: motor sensory deficit Psychiatric exam: ABSENT: agitated, anxious, depressed Focused psych exam: ABSENT: delusional Skin exam: ABSENT: cyanosis, erythema, jaundice Results Laboratory Results: 10/01/19 06:17 10/01/19 06:17 10/01/19 10/01/19 06:17 06:17 WBC 15.8 H RBC 3.54 L Hgb 10.7 L Hct 31.5 L MCV 89 MCH 30.2 MCHC 33.9 RDW 12.9 Plt Count 303 Sodium 135.6 L Potassium 4.5 Chloride 103 Carbon Dioxide 19 L Anion Gap 14 BUN < 2 L Creatinine 0.63 Est GFR ( Amer) > 60 Glucose 64 L Calcium 8.9 Impressions: Transvaginal US 09/26/19 19:30 IMPRESSION: 6.7 cm indeterminate ovarian cyst with internal latticelike echoes, most likely indicating a hemorrhagic cyst. Recommend pelvic US follow-up in 6-12 weeks; if unchanged, continue follow-up with US OR MRI with IV contrast - if follow-up studies do not confirm endometrioma or dermoid, consider surgical evaluation. Reference: Radiology 2010 May;256(3):269-30 copyright 2011 [employer]- All Rights Reserved Abdomen/Pelvis CT 09/30/19 00:00 IMPRESSION: 1. There is a more discretely appreciated rim enhancing fluid collection in the low central abdomen adjacent to a calcification, likely an at appendicolith, findings generally in keeping with perforated appendicitis complicated by abscess. Fluid collection measures approximately 4.3 x 2.7 x 2.0 cm (series 601, image 31). 2. There is a large fluid attenuation lesion in the vicinity of the left ovary measuring at least 8.1 cm, in keeping with ovarian cyst identified on prior ultrasound. Assessment & Plan - Diagnosis (1) Intra-abdominal abscess Is this a current diagnosis for this admission?: Yes - Time Time Spent with patient: Less than 15 minutes - Plan Summary Plan Summary: This is a 24-year-old female with an intra-abdominal abscess. Her percutaneous drain did not happen today. I will touch base with radiology to identify the problem. Patient will require drainage at some point in the near future. Further planning to be determined after discussion with radiology.
[2019-10-02] MEDS: PIPERACILLIN SODIUM/TAZOBACTAM 3.375 GM in NORMAL SALINE 100 ML IV SCH ×3 (01:31→17:45)
[2019-10-02] MEDS: POTASSI CL 20 MEQ/D5-1/2NS 1L 1000 ML IV PRN ×3 (04:03→20:57)
[2019-10-02 06:38] LABS: HEMATOCRIT 33.1 % (36.0-47.0); HEMOGLOBIN 11.1 g/dL (12.0-15.5); MEAN CORPUSCULAR HEMOGLOBIN 29.8 pg (27.0-33.4); MEAN CORPUSCULAR HGB CONC 33.5 g/dL (32.0-36.0); MEAN CORPUSCULAR VOLUME 89 fl (80-97); PLATELET COUNT 354 10^3/uL (150-450); RED BLOOD COUNT 3.72 10^6/uL (3.72-5.28); RED CELL DISTRIBUTION WIDTH 12.9 % (11.5-14.0); WHITE BLOOD COUNT 13.9 10^3/uL (4.0-10.5)
[2019-10-02 07:04] LABS: ANION GAP 8 (5-19); CALCIUM 9.2 mg/dL (8.4-10.2); CARBON DIOXIDE 27 mmol/L (22-30); CHLORIDE 103 mmol/L (98-107); GLUCOSE 114 mg/dL (75-110); POTASSIUM 4.4 mmol/L (3.6-5.0)
[2019-10-02 07:32] LABS: BLOOD UREA NITROGEN < 2 mg/dL (7-20)
[2019-10-02] MEDS: DOCUSATE SODIUM 100 MG CAPSULE PO SCH ×3 (09:39→17:13)
[2019-10-02] MEDS: FAMOTIDINE INJ/PF 20 MG/2 ML SDV IV SCH ×2 (09:39→21:02)
--- NOTE | 2019-10-02 10:16 | PDOC PROGRESS REPORT ---
Subjective Progress Note for:: 10/02/19 Subjective:: Feels better. Hungry. Still with liquid stools with flatus. Just got a call from radiology that a new radiologist will be in tomorrow to possibly do percutaneous drainage of the intra-abdominal abscess. Patient also rec will have a new CT scan with p.o. and IV contrast in a.m. Reason For Visit: PERFORATED APPENDICITIS Physical Exam Vital Signs: Temp Pulse Resp BP Pulse Ox 98.5 F 83 16 132/75 H 100 10/02/19 08:00 10/02/19 08:00 10/02/19 08:00 10/02/19 08:00 10/02/19 08:00 Intake & Output 10/01/19 10/02/19 10/03/19 06:59 06:59 06:59 Intake Total 3400 4240 200 Balance 3400 4240 200 Weight 78.1 kg 81.7 kg Exam: Abdomen is soft with minimal tenderness in the periumbilical and suprapubic areas Results Laboratory Results: 10/02/19 05:52 10/02/19 05:52 10/02/19 10/02/19 05:52 05:52 WBC 13.9 H RBC 3.72 Hgb 11.1 L Hct 33.1 L MCV 89 MCH 29.8 MCHC 33.5 RDW 12.9 Plt Count 354 Sodium 137.7 Potassium 4.4 Chloride 103 Carbon Dioxide 27 Anion Gap 8 BUN < 2 L Creatinine 0.68 Est GFR ( Amer) > 60 Glucose 114 H Calcium 9.2 Impressions: Transvaginal US 09/26/19 19:30 IMPRESSION: 6.7 cm indeterminate ovarian cyst with internal latticelike echoes, most likely indicating a hemorrhagic cyst. Recommend pelvic US follow-up in 6-12 weeks; if unchanged, continue follow-up with US OR MRI with IV contrast - if follow-up studies do not confirm endometrioma or dermoid, consider surgical evaluation. Reference: Radiology 2010 Sep;256(3):94-80 copyright 2011 [employer]- All Rights Reserved Abdomen/Pelvis CT 09/30/19 00:00 IMPRESSION: 1. There is a more discretely appreciated rim enhancing fluid collection in the low central abdomen adjacent to a calcification, likely an at appendicolith, findings generally in keeping with perforated appendicitis complicated by abscess. Fluid collection measures approximately 4.3 x 2.7 x 2.0 cm (series 601, image 31). 2. There is a large fluid attenuation lesion in the vicinity of the left ovary measuring at least 8.1 cm, in keeping with ovarian cyst identified on prior ultrasound. Assessment & Plan - Diagnosis (1) Perforated appendicitis with phlegmon Is this a current diagnosis for this admission?: Yes - Time Time Spent with patient: 15-24 minutes - Inpatient Certification Medical Necessity: Need for IV Antibiotics, Need for Surgery - Plan Summary Plan Summary: 24-year-old female with perforated appendicitis with now localized abscess. Her white count is trending down and clinically looks better. Plans: Continue IV antibiotics. For percutaneous drainage of abscess tomorrow by IR. Start full liquids today and n.p.o. from midnight
[2019-10-03] MEDS: PIPERACILLIN SODIUM/TAZOBACTAM 3.375 GM in NORMAL SALINE 100 ML IV SCH ×3 (02:45→17:43)
[2019-10-03 05:28] LABS: ABSOLUTE BASOPHILS # (AUTO) 0.1 10^3/uL (0.0-0.2); ABSOLUTE EOSINOPHILS # (AUTO) 0.3 10^3/uL (0.0-0.6); ABSOLUTE LYMPHOCYTES (AUTO) 2.3 10^3/uL (0.5-4.7); ABSOLUTE MONOCYTES (AUTO) 1.3 10^3/uL (0.1-1.4); ABSOLUTE NEUT (AUTO) 8.3 10^3/uL (1.7-8.2); BASOPHILS % (AUTO) 0.5 % (0-2); EOSINOPHILS % (AUTO) 2.6 % (0-6); HEMATOCRIT 34.4 % (36.0-47.0); HEMOGLOBIN 11.6 g/dL (12.0-15.5); INTERNATIONAL RATION (INR) 1.08; LYMPHOCYTES % (AUTO) 18.7 % (13-45); MEAN CORPUSCULAR HEMOGLOBIN 29.7 pg (27.0-33.4); MEAN CORPUSCULAR HGB CONC 33.6 g/dL (32.0-36.0); MEAN CORPUSCULAR VOLUME 88 fl (80-97); MONOCYTES % (AUTO) 10.5 % (3-13); PLATELET COUNT 356 10^3/uL (150-450); RED BLOOD COUNT 3.89 10^6/uL (3.72-5.28); RED CELL DISTRIBUTION WIDTH 13.2 % (11.5-14.0); SEGMENTED NEUTROPHILS % (AUTO) 67.7 % (42-78); TOTAL CELLS COUNTED % (AUTO) 100 %; WHITE BLOOD COUNT 12.3 10^3/uL (4.0-10.5)
[2019-10-03 05:29] LABS: PARTIAL THROMBOPLASTIN TIME 32.7 SEC (23.5-35.8)
[2019-10-03 05:52] LABS: ANION GAP 12 (5-19); CALCIUM 9.2 mg/dL (8.4-10.2); CARBON DIOXIDE 24 mmol/L (22-30); CHLORIDE 105 mmol/L (98-107); GLUCOSE 104 mg/dL (75-110)
[2019-10-03 05:56] LABS: BLOOD UREA NITROGEN < 2 mg/dL (7-20)
[2019-10-03] MEDS: POTASSI CL 20 MEQ/D5-1/2NS 1L 1000 ML IV PRN ×2 (07:34→17:52)
[2019-10-03] MEDS: FAMOTIDINE INJ/PF 20 MG/2 ML SDV IV SCH ×2 (09:44→21:53)
[2019-10-03] MEDS: DOCUSATE SODIUM 100 MG CAPSULE PO SCH ×2 (09:45→18:53)
--- NOTE | 2019-10-03 10:54 | PDOC PROGRESS REPORT ---
Subjective Progress Note for:: 10/03/19 Subjective:: much less pains. Pains more due to her menses Reason For Visit: PERFORATED APPENDICITIS Physical Exam Vital Signs: Temp Pulse Resp BP Pulse Ox 97.7 F 80 18 112/77 99 10/03/19 09:00 10/03/19 09:00 10/03/19 09:00 10/03/19 09:00 10/03/19 09:00 Intake & Output 10/02/19 10/03/19 10/04/19 06:59 06:59 06:59 Intake Total 4240 3700 Output Total 900 Balance 4240 2800 Weight 81.7 kg 84.7 kg 84.7 kg Exam: Abdomen is soft with minimal tenderness. She is remained afebrile. No nausea or vomiting Results Laboratory Results: 10/03/19 05:07 10/03/19 05:07 10/03/19 10/03/19 05:07 05:07 WBC 12.3 H RBC 3.89 Hgb 11.6 L Hct 34.4 L MCV 88 MCH 29.7 MCHC 33.6 RDW 13.2 Plt Count 356 Seg Neutrophils % 67.7 Sodium 140.9 Potassium 4.0 Chloride 105 Carbon Dioxide 24 Anion Gap 12 BUN < 2 L Creatinine 0.71 Est GFR ( Amer) > 60 Glucose 104 Calcium 9.2 Impressions: Transvaginal US 09/26/19 19:30 IMPRESSION: 6.7 cm indeterminate ovarian cyst with internal latticelike echoes, most likely indicating a hemorrhagic cyst. Recommend pelvic US follow-up in 6-12 weeks; if unchanged, continue follow-up with US OR MRI with IV contrast - if follow-up studies do not confirm endometrioma or dermoid, consider surgical evaluation. Reference: Radiology 2009;256(3):944-54 copyright 2011 [employer]- All Rights Reserved Assessment & Plan - Diagnosis (1) Perforated appendicitis with phlegmon Is this a current diagnosis for this admission?: Yes - Time Time Spent with patient: 15-24 minutes - Inpatient Certification Medical Necessity: Need for IV Antibiotics, Need for Surgery - Plan Summary Plan Summary: Day 6 of IV antibiotics for perforated appendicitis with abscess soon. Plans: Discussed with Dr. Arredondo who is the IR and they might be able to place a drain but may be able to just aspirate the abscess. Continue IV antibiotics. Could possibly start on diet after aspiration of abscess
[2019-10-03] MEDS ORDERED: MIDAZOLAM 2 MG/2 ML INJ ONE (11:18)
[2019-10-03] MEDS ORDERED: FENTANYL CITRATE INJ/PF 100 MCG/2 ML AMPUL ONE (11:18)
--- NOTE | 2019-10-03 12:02 | PDOC PROGRESS REPORT ---
Subjective Progress Note for:: 10/03/19 Subjective:: Much less pains. Pains more from her menses. Reason For Visit: PERFORATED APPENDICITIS Physical Exam Vital Signs: Temp Pulse Resp BP Pulse Ox 97.7 F 80 18 112/77 99 10/03/19 09:00 10/03/19 09:00 10/03/19 09:00 10/03/19 09:00 10/03/19 09:00 Intake & Output 10/02/19 10/03/19 10/04/19 06:59 06:59 06:59 Intake Total 4240 3700 Output Total 900 Balance 4240 2800 Weight 81.7 kg 84.7 kg 84.7 kg Exam: Abdomen is not distended. Minimal tenderness along the suprapubic and periumbilical areas. Results Laboratory Results: 10/03/19 05:07 10/03/19 05:07 10/03/19 10/03/19 05:07 05:07 WBC 12.3 H RBC 3.89 Hgb 11.6 L Hct 34.4 L MCV 88 MCH 29.7 MCHC 33.6 RDW 13.2 Plt Count 356 Seg Neutrophils % 67.7 Sodium 140.9 Potassium 4.0 Chloride 105 Carbon Dioxide 24 Anion Gap 12 BUN < 2 L Creatinine 0.71 Est GFR ( Amer) > 60 Glucose 104 Calcium 9.2 Impressions: Transvaginal US 09/26/19 19:30 IMPRESSION: 6.7 cm indeterminate ovarian cyst with internal latticelike echoes, most likely indicating a hemorrhagic cyst. Recommend pelvic US follow-up in 6-12 weeks; if unchanged, continue follow-up with US OR MRI with IV contrast - if follow-up studies do not confirm endometrioma or dermoid, consider surgical evaluation. Reference: Radiology 2009;256(3):942-54 copyright 2011 [employer]- All Rights Reserved Assessment & Plan - Diagnosis (1) Perforated appendicitis with phlegmon Is this a current diagnosis for this admission?: Yes - Time Time Spent with patient: 15-24 minutes - Inpatient Certification Medical Necessity: Need for IV Antibiotics - Plan Summary Plan Summary: Got a call from Dr. Arnulfo RESENDEZ who thought he had a good window to do the drainage procedure but patient went to the bathroom and when she came back the the window was not there anymore because a piece of bowel came over the area for the drain site . Since patient is getting somewhat better Dr. Arredondo feels that probably best not to do a procedure which may potentially cause more complications. We will reevaluate Sunday for re-CT scanning and possibly drain it if there is a better window for IR to do the drainage procedure. Meantime I will start the patient on a diet and continue IV antibiotics.
--- NOTE | 2019-10-03 12:30 | RADIOLOGY REPORT (SQ) ---
EXAM DESCRIPTION: CT ABD/PELVIS WITH IV ORAL COMPLETED DATE/TIME: 10/03/2019 11:03 am REASON FOR STUDY: EVALUATE PELVIC ABSCESS FOR POSSIBLE DRAIN COMPARISON: CT of the abdomen pelvis with contrast 09/30/2019. TECHNIQUE: CT scan of the abdomen and pelvis performed using helical scanning technique with dynamic intravenous contrast injection. No oral contrast. Images reviewed with lung, soft tissue, and bone windows. Reconstructed coronal and sagittal MPR images reviewed. Delayed images for evaluation of the urinary system also acquired. All images stored on PACS. All CT scanners at this facility use dose modulation, iterative reconstruction, and/or weight based d osing when appropriate to reduce radiation dose to as low as reasonably achievable (ALARA). [facility]: Dose Right [facility]: CareDose [facility]: Dose Right [facility]: Teradose 4D [facility]: [employer] CONTRAST TYPE AND DOSE: Contrast/concentration: Isovue 350.00 mg/ml; Total Contrast Delivered: 93.0 ml; Total Saline Delivered: 68.0 ml RENAL FUNCTION: GFR > 60. RADIATION DOSE: CT Rad equipment meets quality standard of care and radiation dose reduction techniq ues were employed. CTDIvol: 6.6 - 6.6 mGy. DLP: 684 mGy-cm.. LIMITATIONS: None. FINDINGS: LOWER CHEST: No acute findings. LIVER: The liver morphology is non cirrhotic. The portal veins are patent. There is no hepatic mass . SPLEEN: No splenomegaly or splenic mass PANCREAS: No abnormality of the pancreas GALLBLADDER: No abnormality that is apparent on CT. ADRENAL GLANDS: No masses or asymmetry. RIGHT KIDNEY AND URETER: No solid masses. No calcifications. No hydronephrosis or hydroureter. LEFT KIDNEY AND URETER: No solid masses. No calcifications. No hydronephrosis or hydroureter. AORTA AND VESSELS: No aneurysm or dissection of the abdominal aorta. The abdominopelvic vasculature is patent. RETROPERITONEUM: No retroperitoneal adenopathy, hemorrhage or mass. BOWEL AND PERITONEAL CAVITY: Inflammation in the inferior mesentery centered around a 10 x 7 mm calci fication (image 57 of series 2), the rim enhancing fluid collection in the area is stable in size and it measures 2.4 cm in transverse diameter, 2.3 cm in AP diameter and 3.9 cm in craniocaudal diameter . The associated mesenteric fat stranding, mesenteric adenopathy, and mural thickening of adjacent l oops of bowel is unchanged. There is no bowel obstruction or pneumatosis/free intraperitoneal air. APPENDIX: Unable to identify the appendix. PELVIS: The 7.5 x 6.1 cm water attenuation cystic lesion in the left adnexum is unchanged. There is no abnormality of the right adnexum that is apparent on CT. The uterus is normal in size. The urina ry bladder is partially distended ABDOMINAL WALL: No abdominal wall masses or hernias BONES: No acute findings. OTHER: No other finding. IMPRESSION: 1. The rim enhancing fluid collection in the inferior mesentery adjacent to a 10 x 7 mm calcification (image 57 of series 2) that could represent an appendicolith is unchanged in size and i t measures 2.4 cm in transverse diameter, 2.3 cm in AP diameter and 3.9 cm in craniocaudal diameter. The surrounding inflammation, including the reactive adenopathy and mural thickening of several maureen cent loops of bowel, is unchanged. 2. Other secondary findings as detailed above. TECHNICAL DOCUMENTATION: JOB ID: [id number] Quality ID # [id number]: Final reports with documentation of one or more dose reduction techniques (e.g., Au tomated exposure control, adjustment of the mA and/or kV according to patient size, use of iterative reconstruction technique) 2010 [employer]- All Rights Reserved Reading location - IP/workstation name: [email or web address]
--- NOTE | 2019-10-03 14:02 | RADIOLOGY REPORT (SQ) ---
EXAM DESCRIPTION: CT PELVIS WITHOUT COMPLETED DATE/TIME: 10/03/2019 11:47 am REASON FOR STUDY: intra-abdominal abscess COMPARISON: CT of the abdomen and pelvis with contrast from 10/03/2019. TECHNIQUE: Limited CT images of the mid abdomen were obtained in the axial plane without intravenous contrast in anticipation for percutaneous drainage of a suspected intra-abdominal abscess. All CT scanners at this facility use dose modulation, iterative reconstruction, and/or weight based d osing when appropriate to reduce radiation dose to as low as reasonably achievable (ALARA). [facility]: Dose Right [facility]: CareDose [facility]: Dose Right [facility]: Teradose 4D [facility]: [employer] RADIATION DOSE: CT Rad equipment meets quality standard of care and radiation dose reduction techniq ues were employed. CTDIvol: 4.0 - 15.3 mGy. DLP: 777 mGy-cm. mGy. LIMITATIONS: None. FINDINGS: There is no percutaneous window to access the rim-enhancing collection in the inferior mes entery. IMPRESSION: Limited CT images of the mid abdomen were obtained in anticipation for percutaneous drai nage of a suspected intra-abdominal abscess. The procedure was aborted as no percutaneous window to access the rim-enhancing collection was identified. TECHNICAL DOCUMENTATION: JOB ID: [id number] Quality ID # 436: Final reports with documentation of one or more dose reduction techniques (e.g., Au tomated exposure control, adjustment of the mA and/or kV according to patient size, use of iterative reconstruction technique) 2010 [employer]- All Rights Reserved Reading location - IP/workstation name: [email or web address]
[2019-10-04] MEDS: PIPERACILLIN SODIUM/TAZOBACTAM 3.375 GM in NORMAL SALINE 100 ML IV SCH ×2 (02:38→21:40)
[2019-10-04] MEDS ORDERED: POTASSI CL 20 MEQ/D5-1/2NS 1L 1,000 ML IV ONE (02:51)
[2019-10-04] MEDS: POTASSI CL 20 MEQ/D5-1/2NS 1L 1000 ML IV PRN (02:55)
[2019-10-04 05:28] LABS: HEMATOCRIT 32.9 % (36.0-47.0); HEMOGLOBIN 11.1 g/dL (12.0-15.5); MEAN CORPUSCULAR HEMOGLOBIN 29.8 pg (27.0-33.4); MEAN CORPUSCULAR HGB CONC 33.7 g/dL (32.0-36.0); MEAN CORPUSCULAR VOLUME 88 fl (80-97); PLATELET COUNT 383 10^3/uL (150-450); RED BLOOD COUNT 3.72 10^6/uL (3.72-5.28); WHITE BLOOD COUNT 12.1 10^3/uL (4.0-10.5)
[2019-10-04 05:52] LABS: ANION GAP 9 (5-19); CALCIUM 9.3 mg/dL (8.4-10.2); CARBON DIOXIDE 27 mmol/L (22-30); CHLORIDE 105 mmol/L (98-107); GLUCOSE 86 mg/dL (75-110)
[2019-10-04 05:57] LABS: BLOOD UREA NITROGEN < 2 mg/dL (7-20)
[2019-10-04] MEDS: FAMOTIDINE INJ/PF 20 MG/2 ML SDV IV SCH ×2 (09:49→21:30)
[2019-10-04] MEDS: DOCUSATE SODIUM 100 MG CAPSULE PO SCH ×2 (09:56→18:44)
--- NOTE | 2019-10-04 12:36 | PDOC PROGRESS REPORT ---
Subjective Progress Note for:: 10/04/19 Subjective:: feels better Reason For Visit: PERFORATED APPENDICITIS Physical Exam Vital Signs: Temp Pulse Resp BP Pulse Ox 98.4 F 71 18 108/72 97 10/04/19 08:43 10/04/19 08:43 10/04/19 08:43 10/04/19 08:43 10/04/19 08:43 Intake & Output 10/03/19 10/04/19 10/05/19 06:59 06:59 06:59 Intake Total 3700 2500 Output Total 900 Balance 2800 2500 Weight 84.7 kg 84.7 kg General appearance: PRESENT: no acute distress Head exam: PRESENT: normocephalic Eye exam: PRESENT: EOMI Ear exam: PRESENT: normal external ear exam Mouth exam: PRESENT: moist Neck exam: PRESENT: full ROM Respiratory exam: PRESENT: clear to auscultation bhanu Cardiovascular exam: PRESENT: RRR Pulses: PRESENT: normal radial pulses, normal femoral pulses, +2 pedal pulses bilateral GI/Abdominal exam: PRESENT: soft, other - min suprapubic tenderness Rectal exam: PRESENT: deferred Musculoskeletal exam: PRESENT: full ROM Neurological exam: PRESENT: alert, awake, oriented to person, oriented to place Psychiatric exam: PRESENT: appropriate affect Skin exam: PRESENT: dry Results Laboratory Results: 10/04/19 05:14 10/04/19 05:14 10/04/19 10/04/19 05:14 05:14 WBC 12.1 H RBC 3.72 Hgb 11.1 L Hct 32.9 L MCV 88 MCH 29.8 MCHC 33.7 RDW 13.0 Plt Count 383 Sodium 140.5 Potassium 4.0 Chloride 105 Carbon Dioxide 27 Anion Gap 9 BUN < 2 L Creatinine 0.69 Est GFR ( Amer) > 60 Glucose 86 Calcium 9.3 Impressions: Transvaginal US 09/26/19 19:30 IMPRESSION: 6.7 cm indeterminate ovarian cyst with internal latticelike echoes, most likely indicating a hemorrhagic cyst. Recommend pelvic US follow-up in 6-12 weeks; if unchanged, continue follow-up with US OR MRI with IV contrast - if follow-up studies do not confirm endometrioma or dermoid, consider surgical evaluation. Reference: Radiology 2009;256(3):943-88 copyright 2011 [employer]- All Rights Reserved Abdomen/Pelvis CT 10/03/19 00:00 IMPRESSION: 1. The rim enhancing fluid collection in the inferior mesentery adjacent to a 10 x 7 mm calcification (image 57 of series 2) that could represent an appendicolith is unchanged in size and it measures 2.4 cm in transverse diameter, 2.3 cm in AP diameter and 3.9 cm in craniocaudal diameter. The surrounding inflammation, including the reactive adenopathy and mural thicke shreya of several adjacent loops of bowel, is unchanged. 2. Other secondary findings as detailed above. Pelvis CT 10/03/19 08:00 IMPRESSION: Limited CT images of the mid abdomen were obtained in anticipation for percutaneous drainage of a suspected intra-abdominal abscess. The procedure was aborted as no percutaneous window to access the rim-enhancing collection was identified. Assessment & Plan - Diagnosis (1) Perforated appendicitis with phlegmon Is this a current diagnosis for this admission?: Yes - Time Time Spent with patient: 25-34 minutes - Plan Summary Plan Summary: Impression perforated appendicitis with large lower abdominal phlegmon. Hospital day 7 on IV antibiotics. Patient symptoms have improved however the phlegmon seen on a repeat CAT scan is starting to Colace into an abscess. Initially plans were for IR drainage however per the radiologist the window was not adequate for percutaneous drainage. Suggestions by radiology was to repeat the CAT scan in 2 to 3 days see if the small bowel that was obscuring the window would move or another window would become appropriate. Patient is now tolerating a regular diet and white blood count has been decreasing. We will continue to follow
[2019-10-05] MEDS: PIPERACILLIN SODIUM/TAZOBACTAM 3.375 GM in NORMAL SALINE 100 ML IV SCH ×3 (05:59→21:23)
[2019-10-05] MEDS: DOCUSATE SODIUM 100 MG CAPSULE PO SCH ×2 (09:54→17:39)
[2019-10-05] MEDS: FAMOTIDINE INJ/PF 20 MG/2 ML SDV IV SCH ×2 (10:30→21:23)
--- NOTE | 2019-10-05 11:01 | PDOC PROGRESS REPORT ---
Subjective Progress Note for:: 10/05/19 Subjective:: Feels well tolerating a regular diet having normal bowel movements Reason For Visit: PERFORATED APPENDICITIS Physical Exam Vital Signs: Temp Pulse Resp BP Pulse Ox 98.3 F 72 18 119/72 99 10/05/19 08:36 10/05/19 08:36 10/05/19 08:36 10/05/19 08:36 10/05/19 08:36 Intake & Output 10/04/19 10/05/19 10/06/19 06:59 06:59 06:59 Intake Total 2500 2100 Balance 2500 2100 Weight 84.7 kg 86.1 kg General appearance: PRESENT: no acute distress Head exam: PRESENT: normocephalic Eye exam: PRESENT: EOMI Ear exam: PRESENT: normal external ear exam Mouth exam: PRESENT: moist Neck exam: PRESENT: full ROM Respiratory exam: PRESENT: clear to auscultation bhanu Cardiovascular exam: PRESENT: RRR Pulses: PRESENT: normal radial pulses, normal femoral pulses Vascular exam: PRESENT: normal capillary refill GI/Abdominal exam: PRESENT: soft, other - On palpation the abdomen is soft nontender the lower abdominal fullness is resolved Rectal exam: PRESENT: deferred Extremities exam: PRESENT: full ROM Musculoskeletal exam: PRESENT: full ROM Neurological exam: PRESENT: alert, awake, oriented to person, oriented to place Skin exam: PRESENT: dry Results Laboratory Results: 10/04/19 05:14 10/04/19 05:14 Impressions: Transvaginal US 09/26/19 19:30 IMPRESSION: 6.7 cm indeterminate ovarian cyst with internal latticelike echoes, most likely indicating a hemorrhagic cyst. Recommend pelvic US follow-up in 6-12 weeks; if unchanged, continue follow-up with US OR MRI with IV contrast - if follow-up studies do not confirm endometrioma or dermoid, consider surgical evaluation. Reference: Radiology 2010 May;256(3):943-54 copyright 2011 [employer]- All Rights Reserved Abdomen/Pelvis CT 10/03/19 00:00 IMPRESSION: 1. The rim enhancing fluid collection in the inferior mesentery adjacent to a 10 x 7 mm calcification (image 57 of series 2) that could represent an appendicolith is unchanged in size and it measures 2.4 cm in transverse diameter, 2.3 cm in AP diameter and 3.9 cm in craniocaudal diameter. The surrounding inflammation, including the reactive adenopathy and mural thickening of several adjacent loops of bowel, is unchanged. 2. Other secondary findings as detailed above. Pelvis CT 10/03/19 08:00 IMPRESSION: Limited CT images of the mid abdomen were obtained in anticipation for percutaneous drainage of a suspected intra-abdominal abscess. The procedure was aborted as no percutaneous window to access the rim-enhancing collection was identified. Assessment & Plan - Diagnosis (1) Perforated appendicitis with phlegmon Is this a current diagnosis for this admission?: Yes - Time Time Spent with patient: 25-34 minutes - Plan Summary Plan Summary: Patient remains afebrile with stable vital signs tolerating a regular diet having bowel movements Her pain is subsequently resolved. Plan we will repeat the CT scan in a.m. and consider drainage of the abscess if present. If no plan drainage tomorrow on CT scan patient probably could be discharged home on oral antibiotics with follow-up in a week.
[2019-10-05] MEDS: POTASSI CL 20 MEQ/D5-1/2NS 1L 1000 ML IV PRN (21:31)
[2019-10-06] MEDS: POTASSI CL 20 MEQ/D5-1/2NS 1L 1000 ML IV PRN ×2 (03:31→09:40)
[2019-10-06] MEDS: PIPERACILLIN SODIUM/TAZOBACTAM 3.375 GM in NORMAL SALINE 100 ML IV SCH (05:29)
[2019-10-06] MEDS: FAMOTIDINE INJ/PF 20 MG/2 ML SDV IV SCH (10:50)
[2019-10-06] MEDS: DOCUSATE SODIUM 100 MG CAPSULE PO SCH (10:51)
--- NOTE | 2019-10-06 11:29 | PDOC PROGRESS REPORT ---
Subjective Progress Note for:: 10/06/19 Subjective:: Patient has no complaints, tolerating a diet, no fever Reason For Visit: PERFORATED APPENDICITIS Physical Exam Vital Signs: Temp Pulse Resp BP Pulse Ox 98.1 F 74 16 124/80 99 10/06/19 07:51 10/06/19 07:51 10/06/19 07:51 10/06/19 07:51 10/06/19 07:51 Intake & Output 10/05/19 10/06/19 10/07/19 06:59 06:59 06:59 Intake Total 3200 1200 1100 Balance 3200 1200 1100 Weight 86.1 kg 87 kg 87 kg General appearance: PRESENT: no acute distress GI/Abdominal exam: PRESENT: other - Abdomen exposed. No peritoneal signs no rigidity. There is some pelvic tenderness, but not acute. Results Laboratory Results: 10/04/19 05:14 10/04/19 05:14 Impressions: Transvaginal US 09/26/19 19:30 IMPRESSION: 6.7 cm indeterminate ovarian cyst with internal latticelike echoes, most likely indicating a hemorrhagic cyst. Recommend pelvic US follow-up in 6-12 weeks; if unchanged, continue follow-up with US OR MRI with IV contrast - if follow-up studies do not confirm endometrioma or dermoid, consider surgical evaluation. Reference: Radiology 2010 Sep;256(3):943-27 copyright 2011 [employer]- All Rights Reserved Abdomen/Pelvis CT 10/03/19 00:00 IMPRESSION: 1. The rim enhancing fluid collection in the inferior mesentery adjacent to a 10 x 7 mm calcification (image 57 of series 2) that could represent an appendicolith is unchanged in size and it measures 2.4 cm in transverse diameter, 2.3 cm in AP diameter and 3.9 cm in craniocaudal diameter. The surrounding inflammation, including the reactive adenopathy and mural thickening of several adjacent loops of bowel, is unchanged. 2. Other secondary findings as detailed above. Pelvis CT 10/03/19 08:00 IMPRESSION: Limited CT images of the mid abdomen were obtained in anticipation for percutaneous drainage of a suspected intra-abdominal abscess. The procedure was aborted as no percutaneous window to access the rim-enhancing collection was identified. Assessment & Plan - Diagnosis (1) Perforated appendicitis with phlegmon Is this a current diagnosis for this admission?: Yes Plan: Impression: Stable subclinical intraperitoneal abscess likely due to chronic appendicitis, managed with IV Zosyn Recommendations: 1.Interval CT scan today with oral contrast; anticipate drain placement or otherwise pending findings 2. Anticipate discharge home; patient wishes to follow-up with her clinicians in [place]. - Time Time Spent with patient: 15-24 minutes Medications reviewed and adjusted accordingly: Yes Anticipated discharge: Home
--- NOTE | 2019-10-06 12:08 | RADIOLOGY REPORT (SQ) ---
EXAM DESCRIPTION: CT ABD/PELVIS WITH IV ORAL COMPLETED DATE/TIME: 10/06/2019 11:41 am REASON FOR STUDY: f/u abd abscess COMPARISON: 10/03/2019 TECHNIQUE: CT scan of the abdomen and pelvis performed using helical scanning technique with dynamic intravenous contrast injection. No oral contrast. Images reviewed with lung, soft tissue, and bone windows. Reconstructed coronal and sagittal MPR images reviewed. Delayed images for evaluation of the urinary system also acquired. All images stored on PACS. All CT scanners at this facility use dose modulation, iterative reconstruction, and/or weight based d osing when appropriate to reduce radiation dose to as low as reasonably achievable (ALARA). [facility]: Dose Right [facility]: CareDose [facility]: Dose Right [facility]: Teradose 4D [facility]: wizboo CONTRAST TYPE AND DOSE: contrast/concentration: Isovue 350.00 mg/ml; Total Contrast Delivered: 81.0 ml; Total Saline Delivered: 68.0 ml RENAL FUNCTION: BUN less than 2, creatinine 0.69 RADIATION DOSE: CT Rad equipment meets quality standard of care and radiation dose reduction techniq ues were employed. CTDIvol: 10.2 - 10.3 mGy. DLP: 1061 mGy-cm.. LIMITATIONS: None. FINDINGS: LOWER CHEST: No significant findings. No nodules or infiltrates. LIVER: Normal size. No masses. No dilated ducts. SPLEEN: Normal size. No focal lesions. PANCREAS: No masses. No significant calcifications. No adjacent inflammation or peripancreatic fluid collections. Pancreatic duct not dilated. GALLBLADDER: No identified stones by CT criteria. No inflammatory changes to suggest cholecystitis. ADRENAL GLANDS: No significant masses or asymmetry. RIGHT KIDNEY AND URETER: No solid masses. No significant calcifications. No hydronephrosis or hyd roureter. LEFT KIDNEY AND URETER: No solid masses. No significant calcifications. No hydronephrosis or hydr oureter. AORTA AND VESSELS: No aneurysm. No dissection. Renal arteries, SMA, celiac without stenosis. RETROPERITONEUM: No retroperitoneal adenopathy, hemorrhage or masses. BOWEL AND PERITONEAL CAVITY: Fluid collection in the central abdomen has decreased in size. Largest diameter is 1.7 x 2.2 x 2.7 cm. Compared to 2.4 x 2.3 x 3.9 cm on prior study. Again there is no ad equate window for percutaneous drainage. With the collection significantly smaller in size it would be difficult to form a catheter in the collection in any case. No evidence of obstruction. APPENDIX: Surgically absent. PELVIS: Bilateral adnexal lesions most likely ovarian cysts. ABDOMINAL WALL: No masses. No hernias. BONES: No significant or acute findings. OTHER: No other significant finding. IMPRESSION: Central abdomen fluid collection continues to decrease in size. Largest diameter is 1.7 x 2.2 x 2.7 cm on today's study. No intervention was performed as the collection continues to decre ase in size. TECHNICAL DOCUMENTATION: JOB ID: [id number] Quality ID # [id number]: Final reports with documentation of one or more dose reduction techniques (e.g., Au tomated exposure control, adjustment of the mA and/or kV according to patient size, use of iterative reconstruction technique) 2010 [employer]- All Rights Reserved Reading location - IP/workstation name: [email or web address]
[2019-10-06 13:20] VITALS: BP 117/84
--- NOTE | 2019-10-06 13:50 | PDOC DISCHARGE SUMMARY ---
General - Admit/Disc Date/PCP Admission Date/Primary Care Provider: 09/27/19 03:09 Discharge Date: 10/06/19 - Discharge Diagnosis Final Diagnosis: Acute appendicitis with phlegmon - Assessment Summary: The patient is a 24-year-old Afro-[place] female presented to the emergency department complaining of abdominal pain nausea and anorexia. She was evaluated found to have abdominal tenderness and a leukocytosis. CT scan of the abdomen and pelvis revealed intra-abdominal fluid collection consistent with abscess in the central mid pelvis, with a appendicolith, consistent with acute appendicitis, contained rupture and phlegmon. She had no evidence of peritonitis, or sepsis. The decision was made to manage her nonoperatively. She was admitted to the surgical service for IV fluids IV hydration and n.p.o. status. The subsequent week she improved clinically. The phlegmon consolidated to an abscess but was between loops of bowel, and not accessible for percutaneous drainage by IR. Fortunately she improved clinically, remained afebrile, with normal white blood cell count. She tolerated a diet. She had a repeat CT scan on day of discharge which showed the abscess to be reduced to 2.7 cm in diameter. Nonoperative management was continued The patient was felt to be ready for discharge home on oral antibiotics, and a regular diet. Will return to [place], and follow-up with a clinician for further evaluation. These include continued nonoperative management, versus interval operative exploration, laparoscopic versus open, appendectomy. This was discussed with the patient. - Additional Information Resuscitation Status: Full Code Discharge Diet: As Tolerated Discharge Activity: Activity As Tolerated History of Present Illiness History of Present Illness: HUMERA KINSEY is a 24 year old female Physical Exam Vital Signs: Temp Pulse Resp BP Pulse Ox 98.1 F 70 16 117/84 100 10/06/19 11:43 10/06/19 11:43 10/06/19 11:43 10/06/19 11:43 10/06/19 11:43 Intake & Output 10/05/19 10/06/19 10/07/19 06:59 06:59 06:59 Intake Total 3200 1200 1100 Output Total 3 Balance 3200 1200 1097 Weight 86.1 kg 87 kg 87 kg Results Laboratory Results: WBC 12.1 10^3/uL (4.0-10.5) H 10/04/19 05:14 RBC 3.72 10^6/uL (3.72-5.28) 10/04/19 05:14 Hgb 11.1 g/dL (12.0-15.5) L 10/04/19 05:14 Hct 32.9 % (36.0-47.0) L 10/04/19 05:14 MCV 88 fl (80-97) 10/04/19 05:14 MCH 29.8 pg (27.0-33.4) 10/04/19 05:14 MCHC 33.7 g/dL (32.0-36.0) 10/04/19 05:14 RDW 13.0 % (11.5-14.0) 10/04/19 05:14 Plt Count 383 10^3/uL (150-450) 10/04/19 05:14 Lymph % (Auto) 18.7 % (13-45) 10/03/19 05:07 [place] % (Auto) 10.5 % (3-13) 10/03/19 05:07 Eos % (Auto) 2.6 % (0-6) 10/03/19 05:07 Baso % (Auto) 0.5 % (0-2) 10/03/19 05:07 Absolute Neuts (auto) 8.3 10^3/uL (1.7-8.2) H 10/03/19 05:07 Absolute Lymphs (auto) 2.3 10^3/uL (0.5-4.7) 10/03/19 05:07 Absolute Monos (auto) 1.3 10^3/uL (0.1-1.4) 10/03/19 05:07 Absolute Eos (auto) 0.3 10^3/uL (0.0-0.6) 10/03/19 05:07 Absolute Basos (auto) 0.1 10^3/uL (0.0-0.2) 10/03/19 05:07 Total Counted 100 09/26/19 20:05 Seg Neutrophils % 67.7 % (42-78) 10/03/19 05:07 Seg Neuts % (Manual) 75 % (42-78) 09/26/19 20:05 Lymphocytes % (Manual) 12 % (13-45) L 09/26/19 20:05 Monocytes % (Manual) 12 % (3-13) 09/26/19 20:05 Eosinophils % (Manual) 0 % (0-6) 09/26/19 20:05 Basophils % (Manual) 1 % (0-2) 09/26/19 20:05 Abs Neuts (Manual) 16.6 10^3/uL (1.7-8.2) H 09/26/19 20:05 Abs Lymphs (Manual) 2.7 10^3/uL (0.5-4.7) 09/26/19 20:05 Abs Monocytes (Manual) 2.7 10^3/uL (0.1-1.4) H 09/26/19 20:05 Absolute Eos (Manual) 0.0 10^3/uL (0.0-0.6) 09/26/19 20:05 Abs Basophils (Manual) 0.2 10^3/uL (0.0-0.2) 09/26/19 20:05 Platelet Comment ADEQUATE 09/26/19 20:05 RBC Morph Comment NORMO-CYTIC/CHROMIC 09/26/19 20:05 PT 14.0 SEC (11.4-15.4) 10/03/19 05:07 INR 1.08 10/03/19 05:07 APTT 32.7 SEC (23.5-35.8) 10/03/19 05:07 Sodium 140.5 mmol/L (137-145) 10/04/19 05:14 Potassium 4.0 mmol/L (3.6-5.0) 10/04/19 05:14 Chloride 105 mmol/L (98-107) 10/04/19 05:14 Carbon Dioxide 27 mmol/L (22-30) 10/04/19 05:14 Anion Gap 9 (5-19) 10/04/19 05:14 BUN < 2 mg/dL (7-20) L 10/04/19 05:14 Creatinine 0.69 mg/dL (0.52-1.25) 10/04/19 05:14 Est GFR ( Amer) > 60 (>60) 10/04/19 05:14 Est GFR (MDRD) Non-Af > 60 (>60) 10/04/19 05:14 Glucose 86 mg/dL (75-110) 10/04/19 05:14 POC Glucose 83 mg/dL (70-110) 10/01/19 08:04 Calcium 9.3 mg/dL (8.4-10.2) 10/04/19 05:14 Total Bilirubin 0.7 mg/dL (0.2-1.3) 09/26/19 20:05 Direct Bilirubin 0.2 mg/dL (0.0-0.4) 09/26/19 20:05 Neonat Total Bilirubin Not Reportable 09/26/19 20:05 Neonat Direct Bilirubin Not Reportable 09/26/19 20:05 Neonat Indirect Bili Not Reportable 09/26/19 20:05 AST 64 U/L (14-36) H 09/26/19 20:05 ALT 88 U/L (<35) 09/26/19 20:05 Alkaline Phosphatase 112 U/L (38-126) 09/26/19 20:05 Total Protein 8.1 g/dL (6.3-8.2) 09/26/19 20:05 Albumin 4.4 g/dL (3.5-5.0) 09/26/19 20:05 Serum HCG, Qual NEGATIVE (NEGATIVE) 09/26/19 20:05 Beta HCG, Quant Cancelled 09/26/19 20:05 Total Beta HCG Cancelled 09/26/19 20:05 Urine Color YELLOW 09/27/19 01:02 Urine Appearance SLIGHTLY-CLOUDY 09/27/19 01:02 Urine pH 6.0 (5.0-9.0) 09/27/19 01:02 Ur Specific [place] 1.032 09/27/19 01:02 Urine Protein 100 mg/dL (NEGATIVE) H 09/27/19 01:02 Urine Glucose (UA) NEGATIVE mg/dL (NEGATIVE) 09/27/19 01:02 Urine Ketones 80 mg/dL (NEGATIVE) H 09/27/19 01:02 Urine Blood MODERATE (NEGATIVE) H 09/27/19 01:02 Urine Nitrite NEGATIVE (NEGATIVE) 09/27/19 01:02 Urine Bilirubin NEGATIVE (NEGATIVE) 09/27/19 01:02 Urine Urobilinogen NEGATIVE mg/dL (<2.0) 09/27/19 01:02 Ur Leukocyte Esterase NEGATIVE (NEGATIVE) 09/27/19 01:02 Urine WBC (Auto) 4 /HPF 09/27/19 01:02 Urine RBC (Auto) 65 /HPF 09/27/19 01:02 Squamous Epi Cells Auto 9 /HPF 09/27/19 01:02 Urine Mucus (Auto) MANY /LPF 09/27/19 01:02 Urine Ascorbic Acid NEGATIVE (NEGATIVE) 09/27/19 01:02 Urine Opiates Screen UNCONFIRMED POSITIVE 09/27/19 01:02 Urine Methadone Screen NEGATIVE 09/27/19 01:02 Ur Barbiturates Screen NEGATIVE 09/27/19 01:02 Ur Phencyclidine Scrn NEGATIVE 09/27/19 01:02 Ur Amphetamines Screen NEGATIVE 09/27/19 01:02 U Benzodiazepines Scrn NEGATIVE 09/27/19 01:02 Urine Cocaine Screen NEGATIVE 09/27/19 01:02 U Marijuana (THC) Screen UNCONFIRMED POSITIVE 09/27/19 01:02 Impressions: Abdomen/Pelvis CT 09/26/19 00:00 IMPRESSION: 1. Findings consistent with acute perforated appendicitis with phlegmon and abscess formation in the mid pelvis with associated reactive ileus. Recommend urgent surgical consultation. 2. 7.3 cm simple appearing left ovarian cyst. Recommend ultrasound follow-up in 6-12 weeks. Transvaginal US 09/26/19 19:30 IMPRESSION: 6.7 cm indeterminate ovarian cyst with internal latticelike echoes, most likely indicating a hemorrhagic cyst. Recommend pelvic US follow-up in 6-12 weeks; if unchanged, continue follow-up with US OR MRI with IV contrast - if follow-up studies do not confirm endometrioma or dermoid, consider surgical evaluation. Reference: Radiology 2010 May;256(3):943-54 copyright 2011 [employer]- All Rights Reserved Abdomen/Pelvis CT 09/30/19 00:00 IMPRESSION: 1. There is a more discretely appreciated rim enhancing fluid collection in the low central abdomen adjacent to a calcification, likely an at appendicolith, findings generally in keeping with perforated appendicitis complicated by abscess. Fluid collection measures approximately 4.3 x 2.7 x 2.0 cm (series 601, image 31). 2. There is a large fluid attenuation lesion in the vicinity of the left ovary measuring at least 8.1 cm, in keeping with ovarian cyst identified on prior ultrasound. Abdomen/Pelvis CT 10/03/19 00:00 IMPRESSION: 1. The rim enhancing fluid collection in the inferior mesentery adjacent to a 10 x 7 mm calcification (image 57 of series 2) that could represent an appendicolith is unchanged in size and it measures 2.4 cm in transverse diameter, 2.3 cm in AP diameter and 3.9 cm in craniocaudal diameter. The surrounding inflammation, including the reactive adenopathy and mural thickening of several adjacent loops of bowel, is unchanged. 2. Other secondary findings as detailed above. Pelvis CT 10/03/19 08:00 IMPRESSION: Limited CT images of the mid abdomen were obtained in anticipation for percutaneous drainage of a suspected intra-abdominal abscess. The procedure was aborted as no percutaneous window to access the rim-enhancing collection was identified. Abdomen/Pelvis CT 10/06/19 11:01 IMPRESSION: Central abdomen fluid collection continues to decrease in size. Largest diameter is 1.7 x 2.2 x 2.7 cm on today's study. No intervention was performed as the collection continues to decrease in size.
== END 2019-10-06 14:44 | disposition home or self-care (01) | DRG 373 ==
LOC: ER 18:07 → EH 09-27 03:09 → 2N 09-27 04:59
PROVIDERS: ADMIT Surgery; ATTEND Surgery
DX: K35.33 Acute appendicitis with perforation, localized peritonitis, and gangrene, with abscess (principal); D25.9 Leiomyoma of uterus, unspecified; N83.202 Unspecified ovarian cyst, left side; I10 Essential (primary) hypertension; F12.90 Cannabis use, unspecified, uncomplicated; F17.210 Nicotine dependence, cigarettes, uncomplicated; E86.0 Dehydration
CPT/HCPCS: 36415; 72192; 74177; 76830; 80048; 80053; 80307; 81001; 82962; 84702; 84703; 85025; 85027; 85610; 85730; 93976; 94799; 96361; 96365; 96375; 99285; J0131; J1170; J1644; J1885; J2250; J2270; J2405; J2543; J2765; J3010; J3480; J7030; J7050; S0028